=== PATIENT | female | born 1970 | race Caucasian/White ===

== ENCOUNTER 2022-01-03 01:20 | Emergency (ER) | payer OTHER, SELFPAY ==
[2022-01-03 01:26] VITALS: BP 104/67; PULSE 71; RESP 18; TEMP 36.2; O2SAT 100; BMI 26.6
--- NOTE | 2022-01-03 01:39 | CRLHL7_ITS ---
For Patients: As a result of the Century Cures Act, medical imaging exams and procedure reports are released immediately into your electronic medical record. You may view this report before your referring provider. If you have questions, please contact your health care provider. Indication: Abdominal fullness, severe mid abdominal pain Technique: KUB 2 view Comparison: None Findings/Impression: : Soft tissues: No suspicious calcifications to suggest kidney or ureteral stones. No sign of free air. No sign of soft tissue mass. Bowel: Bowel pattern is within normal limits. Moderate amount of stool in the colon. Bones: Unremarkable for age. Dictated by Tamika James MD @ 01/03/2022 2:32:29 AM (Electronically Signed)
[2022-01-03] MEDS: 0.9 % SODIUM CHLORIDE 1000 ml 1,000 ML IV (02:01)
[2022-01-03] MEDS: HYDROmorphone 0.5 mg/0.5 ml inj 1 MG IVP (02:02)
[2022-01-03] MEDS: HYOSCYAMINE SULFATE 0.125 MG TAB 0.25 MG SUBLINGUAL (02:06)
[2022-01-03 02:14] LABS: Basophils Absolute Auto 0.01 K/uL (0.00-0.30); Basophils Percent Auto 0.1 % (0.0-3.0); Eosinophils Absolute Auto 0.01 K/uL (0.00-0.50); Eosinophils Percent Auto 0.1 % (0.0-7.0); Hematocrit 49.3 % (33.0-51.0); Hemoglobin* 16.4 gm/dL (12.0-16.0); Immature Granulocytes Abs Auto 0.05 K/uL (0.00-0.30); Lymphocytes Percent Auto 13.4 % (20-44); Mean Corpuscular HGB Conc 33 gm/dL (32-36); Mean Corpuscular Hemoglobin 33 pg (26-34); Mean Corpuscular Volume 98 fL (80-100); Monocytes Percent Auto 4.6 % (0.0-11.0); Neutrophils Percent Auto 81.3 % (42.0-72.0); Platelet Count* 237 K/uL (140-440); RDW Coefficient of Variation % 13.4 % (11.5-15.5); Red Blood Count 5.03 m/uL (4.00-5.20); Slide Review Reflex No; White Blood Count* 9.16 K/uL (4.50-11.00)
[2022-01-03 02:15] VITALS: BP 112/77; PULSE 73; RESP 18; O2SAT 100
--- NOTE | 2022-01-03 02:31 | ED.ABDPAIN ---
HPI - Abdominal Pain General Chief Complaint: Abdominal Pain Stated Complaint: Stomach pain Time Seen by Provider: 01/03/22 01:33 Source: patient and RN notes reviewed Mode of arrival: ambulatory Limitations: no limitations History of Present Illness HPI narrative: 51-year-old woman presenting to the emergency department with complaints of abdominal pain. It is constant and sharp though times cramping feeling like labor pains. Indicates the mid abdomen earlier over the whole abdomen. Further questioning she does recount a history of similar a last July where she says she had an infection of some sort in the small intestine she thinks. Colitis does not appear to be a familiar diagnosis. I am later able to locate records with a CT scan in July of 2020 showing nonspecific small bowel enteritis. She admits that yesterday was not feeling very well. Ended up eating a lot of vegetables from her garden yesterday and she thought that some of this discomfort might be related to that. In spite of the discomfort she was feeling earlier today she did manage to fall asleep and woke with more intense pain as noted above. This prior recurrence also apparently woke her from sleep. Denies constipation. No dysuria frequency urgency or retention. Related Data Home Medications Medication Instructions Recorded Confirmed estradiol 1 mg tablet mg 01/03/22 montelukast 10 mg tablet mg 01/03/22 progesterone 01/03/22 testost-versa 1% cream 01/03/22 valacyclovir 1 gram tablet mg 01/03/22 Allergies Allergy/AdvReac Type Severity Reaction Status Date / Time No Known Drug Allergies Allergy Verified 01/03/22 01:29 Review of Systems Status of ROS Reports: 6 or more systems reviewed and unremarkable except as noted in History and below [facility] Social History Smoking Status: Former smoker How often do you have a drink containing alcohol: 2-4 times a month AUDIT-C Alcohol total score: 2 Non-prescribed substance use: denies use Exam Narrative: Exam Narrative: Breathless and splinting a little bit in apparent discomfort. Observe related to be ambulating in has to hunch forward a little bit as if straightening would cause more pain. Carefully casually groomed. Other than the breathlessness is speaking easily. Cranial nerves 2-12 intact. Moving all extremities without difficulty. Cardiovascular with regular rate and rhythm. Abdomen is soft without peritoneal signs. Extremely tender in the low mid abdomen. Seems a general fullness but not tympanitic. Bowel sounds are present, normoactive. Moving all extremities without difficulty. No edema. Const: Vital Signs, click to edit/add: Vital Signs - 24 hr 01/03/22 01:26 Temperature 97.1 F L Pulse Rate [Left P ulse Oximeter] 71 Respiratory Rate 18 Blood Pressure [Ri ght Upper Arm] 104/67 Pulse Oximetry 100 Oxygen Delivery Me thod Room Air Documenting provider has reviewed patient's vital signs: yes Course Course Hospital Course: Is ordered for IV fluids and pain management in the form of Dilaudid and then also hyoscyamine for potential cramping. My initial thought is that this pain might be more gas related, colicky in nature. I have ordered abdominal x-ray as well as labs looking for red flags. Abdominal x-ray reviewed by me shows a good deal stool I would say throughout the colon. I do not appreciate free air. No air-fluid levels. Pain is overall improved. Vital Signs Vital signs: Initial Vital Signs Temperature 97.1 F L 01/03/22 01:26 Temperature Source Temporal Artery Scan 01/03/22 01:26 Pulse Rate 71 01/03/22 01:26 Respiratory Rate 18 01/03/22 01:26 Blood Pressure 104/67 01/03/22 01:26 Blood Pressure Mean 79 01/03/22 01:26 Blood Pressure Position Sitting 01/03/22 01:26 Pulse Oximetry 100 01/03/22 01:26 Oxygen Delivery Method 01/03/22 01:26 Vital Signs Temperature 97.1 F L 01/03/22 01:26 Pulse Rate 71 01/03/22 01:26 Respiratory Rate 18 01/03/22 01:26 Blood Pressure 104/67 01/03/22 01:26 Pulse Oximetry 100 01/03/22 01:26 Oxygen Delivery Method 01/03/22 01:26 Temperature 97.1 F L 01/03/22 01:26 Pulse Rate 79 01/03/22 03:30 Respiratory Rate 18 01/03/22 03:30 Blood Pressure 105/65 01/03/22 03:30 Pulse Oximetry 95 01/03/22 03:30 Oxygen Delivery Method 01/03/22 03:30 MDM - Abdominal Pain MDM Narrative Medical decision making narrative: White count and CRP are normal. Potassium slightly low. We did discuss potential CT imaging. As she is with normal vitals and overall improved and with relatively normal labs, mutual decision to defer further imaging at this time to close follow-up as needed. Medical Records Attestation: I reviewed the patient's medical records. Lab Data Attestation: I reviewed the patient's lab results. Labs: Lab Results 01/03/22 01/03/22 01/03/22 Range/Units 02:10 02:10 03:45 WBC 9.16 (4.50-11.00) K/uL RBC 5.03 (4.00-5.20) m/uL Hgb 16.4 H (12.0-16.0) gm/dL Hct 49.3 (33.0-51.0) % MCV 98 (80-100) fL MCH 33 (26-34) pg MCHC 33 (32-36) gm/dL RDW Coeff of [place] 13.4 (11.5-15.5) % Plt Count 237 (140-440) K/uL Neut % (Auto) 81.3 H (42.0-72.0) % Lymph % (Auto) 13.4 L (20-44) % [place] % (Auto) 4.6 (0.0-11.0) % Eos % (Auto) 0.1 (0.0-7.0) % Baso % (Auto) 0.1 (0.0-3.0) % Neut # (Auto) 7.40 H (1.7-7.0) K/uL Lymph # (Auto) 1.20 (0.90-2.90) K/uL [place] # (Auto) 0.40 (0.00-0.90) K/UL Eos # (Auto) 0.01 (0.00-0.50) K/uL Baso # (Auto) 0.01 (0.00-0.30) K/uL Abs Immat Gran (auto) 0.05 (0.00-0.30) K/uL Sodium 137 (135-149) mmol/L Potassium 3.2 L (3.6-5.1) mmol/L Chloride 110 (96-114) mmol/L Carbon Dioxide 20 (20-32) mmol/L BUN 16 (5-24) mg/dL Creatinine 0.7 (0.5-1.5) mg/dL Estimated Creat Clear 94.54 Estimated GFR 106 ml/min Glucose 108 (60-115) mg/dL Calcium 7.5 L (8.4-10.6) mg/dL Total Bilirubin 0.2 (0.1-1.5) mg/dL AST 20 (12-35) U/L ALT 15 (4-35) U/L Alkaline Phosphatase 50 (40-150) U/L C-Reactive Protein 0.6 (0.5-1.0) mg/dL Total Protein 5.8 L (6.0-8.3) g/dL Albumin 3.1 L (3.3-5.0) g/dL Urine Color Yellow (Yellow) Urine Appearance Clear (Clear) Urine pH 7.0 (5.0-8.5) Ur Specific [place] 1.020 (1.000-1.030) Urine Protein Negative (Negative) Urine Glucose (UA) Negative (Negative) Urine Ketones Negative (Negative) Urine Blood Trace-intact A (Negative) Urine Nitrite Negative (Negative) Urine Bilirubin Negative (Negative) Urine Urobilinogen 0.2 (0.2-1.0) Ur Leukocyte Esterase Negative (Negative) Urine RBC 0-2 (0-2) Urine WBC 0-2 (0-5) Ur Squamous Epith Cells None (None-Few) Urine Bacteria Few A (None) Discharge Plan Discharge Clinical Impression: Abdominal pain Patient Disposition: Home w/ Parent or Adult Condition: Stable Additional Instructions: Yes I would focus on hydration; preferring liquid diet over the next 48-72 hours. Diluted juices and broths to thicker soups and smoothies over that time. Then rice, toast. Return for marked increase in persistent pain, repeated vomiting, fever. You did have excessive stool in the colon. If experiencing hard stool and would consider placement of an enema and repeating in an hour if no significant result. Otherwise might also try drinking 1/2-1 bottle of magnesium citrate repeating next day if no significant result. Prescriptions: No Action valacyclovir 1 gram tablet Label Comments: TAKE 2 TABLETS BY MOUTH 2 TIMES DAILY FOR ONE DAY. TAKE WITH EACH COLD SORE OUTBREAK. estradiol 1 mg tablet Label Comments: TAKE 1 TABLET BY MOUTH EVERY DAY IN THE EVENING montelukast 10 mg tablet progesterone testost-versa 1% cream Follow Up/Referrals: Provider,Not a Local [Primary Care Provider] - Stand Alone Forms: [employer] Info Instructions
[2022-01-03 03:09] LABS: Chloride* 110 mmol/L (96-114)
[2022-01-03 03:10] LABS: Albumin* 3.1 g/dL (3.3-5.0); Potassium* 3.2 mmol/L (3.6-5.1); Sodium* 137 mmol/L (135-149)
[2022-01-03 03:12] LABS: Creatinine* 0.7 mg/dL (0.5-1.5); Est. Creatinine Clearance* 94.54; Estimated Glomerular Filt Rate 106 ml/min
[2022-01-03 03:15] VITALS: BP 107/68; PULSE 88; RESP 18; O2SAT 96
[2022-01-03 03:19] LABS: Alanine Aminotransferase* 15 U/L (4-35); Alkaline Phosphatase* 50 U/L (40-150); Aspartate Amino Transferase* 20 U/L (12-35); Bilirubin Total* 0.2 mg/dL (0.1-1.5); Blood Urea Nitrogen* 16 mg/dL (5-24); C Reactive Protein* 0.6 mg/dL (0.5-1.0); Calcium* 7.5 mg/dL (8.4-10.6); Carbon Dioxide* 20 mmol/L (20-32); Glucose* 108 mg/dL (60-115); Total Protein* 5.8 g/dL (6.0-8.3)
[2022-01-03 03:30] VITALS: BP 105/65; PULSE 79; RESP 18; O2SAT 95
[2022-01-03 03:53] LABS: Appearance Urine Clear (Clear); Bilirubin Urine Negative (Negative); Blood Urine Trace-intact (Negative); Color Urine Yellow (Yellow); Glucose Urine Negative (Negative); Ketones Urine Negative (Negative); Leukocyte Esterase Urine Negative (Negative); Nitrite Urine Negative (Negative); Protein Urine Negative (Negative); Urobilinogen Urine 0.2 (0.2-1.0)
[2022-01-03 04:02] LABS: Bacteria Urine Few; RBC Urine 0-2 (0-2); WBC Urine 0-2 (0-5)
== END 2022-01-03 04:36 | disposition home or self-care (01) ==
PROVIDERS: Emergency Provider Family Medicine
DX: R10.9 Unspecified abdominal pain (principal)
CPT/HCPCS: 36415; 74019; 80053; 81003; 81015; 85025; 86140; 87086; 96374; 99283; 99284; A9270; J1170; J7030

== ENCOUNTER 2023-05-21 14:30 | Outpatient (RCR) | payer BC, SELFPAY | END 2023-07-18 09:48 | disposition home or self-care (01) | PROVIDERS: Visit Provider Physician Assistant Medical | DX: G57.01 Lesion of sciatic nerve, right lower limb (principal); M25.551 Pain in right hip; M25.651 Stiffness of right hip, not elsewhere classified; M62.81 Muscle weakness (generalized); Z51.89 Encounter for other specified aftercare | CPT/HCPCS: 97110; 97161 ==

== ENCOUNTER 2024-09-14 10:53 | Outpatient (REF) | payer BC, SELFPAY ==
[2024-09-14 12:08] LABS: Free T4 Free Thyroxine* 0.93 ng/dL (0.70-1.85)
[2024-09-14 12:26] LABS: Thyroid Stimulating Hormone* < 0.015 uIU/mL (0.270-4.20)
[2024-09-14 12:30] LABS: Vitamin D 25 Hydroxy* 53 ng/mL (30-80)
[2024-09-14 12:40] LABS: Vitamin B12* 752 pg/mL (243-894)
[2024-09-15 09:12] LABS: Estradiol Premenol Female 51 pg/mL
[2024-09-16 05:01] LABS: DHEAS 143 ug/dL (35-256)
[2024-09-16 22:00] LABS: Free T3 5.2 pg/mL (2.5-4.3)
[2024-09-17 00:02] LABS: Sex Hormone Binding Globulin 47 nmol/L (17-125); Testosterone, Free LC-MS/MS 30.7 pg/mL (0.6-3.8); Testosterone, LC-MS/MS 216 ng/dL (9-55)
[2024-09-19 18:16] LABS: Estradiol by TMS 38.3 pg/mL; Estrone by TMS 31.4 pg/mL
[2024-09-20 14:35] LABS: Progesterone, HPLC-MS/MS 0.19 ng/mL
== END 2024-09-14 10:54 | disposition home or self-care (01) ==
LOC: LAB 10:53
PROVIDERS: Visit Provider Family Medicine
DX: N95.8 Other specified menopausal and perimenopausal disorders (principal); R68.82 Decreased libido; E03.9 Hypothyroidism, unspecified; R53.83 Other fatigue
CPT/HCPCS: 36415; 82306; 82607; 82627; 82670; 82671; 84144; 84270; 84402; 84403; 84439; 84443; 84481